=== PATIENT | male | born 1975 | race Caucasian/White ===

== ENCOUNTER 2016-12-16 10:08 | Emergency (ER) | payer OTHER ==
[~2016-12-16] VITALS: Ht 177.8 cm; Wt 88.0 kg
[2016-12-16] MEDS ORDERED: PREDNISONE50 MG PO (11:26)
[2016-12-16] MEDS ORDERED: PROAIR RESPICL90 MCG IH (11:27)
[2016-12-16] MEDS ORDERED: COMBIVENT RESPIM4 GM IH (11:39)
[2016-12-16 11:53] VITALS: BP 150/94
== END 2016-12-16 11:54 | disposition home or self-care (01) ==
LOC: EME 10:08
DX: J45.901 Unspecified asthma with (acute) exacerbation (principal); Z72.0 Tobacco use
CPT/HCPCS: 71020; 94640; 99281; 99283; J7512

== ENCOUNTER 2016-12-19 14:01 | Emergency (ER) | payer OTHER ==
[~2016-12-19] VITALS: Ht 177.8 cm; Wt 85.6 kg
[~2016-12-19 14:01] MED LIST: COMBIVENT RESPIM4 GM IH; PREDNISONE50 MG PO; PROAIR RESPICL90 MCG IH
[2016-12-19 14:36] LABS: HEMATOCRIT 47.2 % (38.0-50.0); MCH 32.5 PG (29.0-34.0); MCHC 34.7 G/DL (30.0-36.0); MCV 93.7 FL (86-99); MEAN PLAT.VOLUME 9.9 uM^3 (9.0-12.4); PLATELET COUNT 245 K/uL (156-360); RBC DIS.WIDTH-CV 12.6 % (11.8-14.6); RBC DIS.WIDTH-SD 43.7 % (39-53); RED BLOOD COUNT 5.04 M/uL (4.00-5.50)
[2016-12-19 14:46] LABS: CHLORIDE 104 mEq/L (99-109); POTASSIUM 3.7 mEq/L (3.7-5.4); SODIUM 140 mEq/L (136-147)
[2016-12-19 14:48] LABS: GLUCOSE 84 mg/dL (70-99)
[2016-12-19 14:49] LABS: ANION GAP 12 MEQ/L (2-14)
[2016-12-19 14:52] LABS: GFR ESTIMATE (CALCULATED) > 59 mL/min/
[2016-12-19 14:53] LABS: UREA NITROGEN (BUN) 25 mg/dL (9-23)
[2016-12-19] MEDS ORDERED: VENTOLIN HFA18 GM IH (16:51)
[2016-12-19 17:03] VITALS: BP 131/68
== END 2016-12-19 17:05 | disposition home or self-care (01) ==
LOC: EME 14:01
DX: J45.901 Unspecified asthma with (acute) exacerbation (principal); F17.200 Nicotine dependence, unspecified, uncomplicated
CPT/HCPCS: 70360; 71020; 80048; 85027; 94640; 99281; 99284